=== PATIENT | male | born 1985 | race Caucasian/White ===

== ENCOUNTER 2019-01-17 19:31 | Emergency (ER) | payer OTHER, SELFPAY ==
[2019-01-17 19:32] VITALS: BP 151/82; PULSE 79; RESP 16; TEMP 36.8; O2SAT 97; BMI 32.4
--- NOTE | 2019-01-17 19:41 | RAD_ITS ---
STUDY: X-RAY - LEFT KNEE REASON FOR EXAM: Male, 33 years old. Foreign body TECHNIQUE: 2 view(s) of the knee. COMPARISON: None. FINDINGS: Normal visualized distal femur. Normal visualized proximal tibia and fibula. Normal proximal tibiofibular articulation. Normal medial femorotibial compartment. Normal lateral femorotibial compartment. Normal patellofemoral articulation. There is a hyperdense foreign body in the posterior medial soft tissues, immediately superior to the femoral condyle. RAD/Knee 1 or 2 Views IMPRESSION: No acute osseous injury. Small foreign body in the posteromedial soft tissue. Electronically Signed: Kay Agustin, at 20:07 EDT Tel , Service support ,
[2019-01-17] MEDS: Diphth,Pertuss(Acell),Tet Vac 0.5 ML Vial IM (19:50)
--- NOTE | 2019-01-17 20:45 | RAD_ITS ---
STUDY: X-RAY - LEFT KNEE REASON FOR EXAM: Male, 33 years old. Foreign body. TECHNIQUE: 2 view(s) of the knee. COMPARISON: January 07, 2019 FINDINGS: Normal visualized distal femur. Normal visualized proximal tibia and fibula. Normal proximal tibiofibular articulation. Normal medial femorotibial compartment. Normal lateral femorotibial compartment. Normal patellofemoral articulation. The foreign body projecting over the posteromedial soft tissues is no longer visualized. RAD/Knee 1 or 2 Views IMPRESSION: Successful removal of foreign body. Electronically Signed: Liz Jensen MD at 21:21 EDT Tel , Service support ,
--- NOTE | 2019-01-17 21:02 | ED.VISSUMM ---
- ER Visit Summary Date of Service: 01/17/19 Chief Complaint: Foreign body in the leg History of Present Illness: The patient is a 33 M states that yesterday he was hammering on some metal on the truck and the piece of metal went to his leg. Went through the his jeans into the skin he put a magnet on he could feel that the magnet was pulling on a piece of metal. He needs a tetanus update. Physical Examination: Afebrile vital signs stable There is about a 1 cm elliptical laceration to the medial distal left thigh. Is a palpable foreign body. No signs of erythema. There is local skin irritation from the Band-Aid and applied Test Results: Foreign body was seen on x-ray. Emergency Department Course and Treatment: Patient provided informed consent for attempted removal. Complications that were noted would be infection bleeding retained foreign body, nerve damage. Wound was locally anesthetized using 1% lidocaine with epinephrine. Curved hemostats were placed into the wound and metallic foreign body was immediately felt. This was grasped with the forceps and removed without difficulty. Post films show that the foreign body was removed. Patient was placed on low-dose Keflex. I did put to sutures into the wound to loosely approximate the edges. Patient's tetanus was updated with Adacel stitches will need to be removed in 7 days. Impression: 1. Metallic foreign body in left thigh soft tissue 2. Removal by physician 3. Tetanus update This note was generated with [employer] dictation software. It may contain incorrect words, spelling, and punctuation that were not noted in review of the chart prior to signing ED Disposition - Plan for ED Patient: Disposition: Home or Assisted Living Instructions: FOREIGN BODY, Soft Tissue [Removed] Prescriptions: Cephalexin [Keflex] 500 mg PO Q8 #15 cap Prescription Printed Referrals: Magen Reyez MD [Primary Care Provider] - 7 Days for suture removal
== END 2019-01-17 21:19 | disposition home or self-care (01) ==
PROVIDERS: Emergency Provider Emergency Medicine; Family Provider Family Medicine; PCP Family Medicine
DX: S71.122A Laceration with foreign body, left thigh, initial encounter (principal); W45.8XXA Other foreign body or object entering through skin, initial encounter; Y93.89 Activity, other specified; Y92.9 Unspecified place or not applicable; Z87.891 Personal history of nicotine dependence
CPT/HCPCS: 27372; 73560; 90471; 90715; 99283